=== PATIENT | male | born 1960 | race Caucasian/White ===

== ENCOUNTER 2016-07-09 16:23 | Inpatient (IN) | payer MEDICARE ==
[~2016-07-09] VITALS: Ht 180.3 cm; Wt 88.2 kg
[~2016-07-09 16:23] MED LIST: ASPI-973 PO; ATOR40TA69 PO; DICY10CA13 PO; LISI-571 PO; METO25TA6 PO; ONDA4TAB9 PO; OXYC-466 PO; OXYC1TAB24 PO; POLY17PO6 PO; PRE10 PO
[2016-07-09 16:32] VITALS: BP 137/64; PULSE 102; RESP 17; O2SAT 95
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
[2016-07-09] MEDS ORDERED: Pantoprazole 4 mg/mL 10 mL Inj IVPUSH ONE (16:45)
[2016-07-09] MEDS ORDERED: Ondansetron 2 mg/mL 2 mL Inj IVPUSH ONE ×3 (16:45→18:50)
[2016-07-09 17:29] LABS: BASOPHILS % (AUTO) 0.2 % (0-3); EOSINOPHILS % (AUTO) 1.8 % (0-5); MONOCYTES % (AUTO) 7.9 % (4-12); Mean Corpuscular Volume 84.9 fL (81-100); NEUTROPHILS % (AUTO) 74.6 % (40-74); Platelet Count 183 bil/L (150-400)
[2016-07-09 17:53] LABS: TROPONIN T < 0.010 ug/L (0.0-0.011)
[2016-07-09 17:56] LABS: Lipase 23 U/L (13-60); Magnesium 1.7 mg/dL (1.6-2.6)
--- NOTE | 2016-07-09 18:05 | DRSVH ---
PROCEDURE: X-RAY ACUTE ABDOMINAL SERIES ([id number]) INDICATIONS: epigastric pain TECHNIQUE: One view chest and two views of the abdomen were acquired. COMPARISON: [facility], CR, XR CHEST 1VW (PORTABLE), 03/18/2016, 23:22. FINDINGS: Surgical changes and devices: Surgical clips at the gastroesophageal junction. Cholecystectomy clip s. Chest: Lungs are clear. Heart size is normal. No pleural effusions. No pneumoperitoneum. Abdomen: Mildly dilated loops of small bowel noted left upper quadrant measure up to 3.[address] Scattered air-fluid levels are noted. Several air-fluid levels differential height. No suspic ious calcifications. Visualized solid organ contours appear normal. Bones: No suspicious bony lesions. IMPRESSION: Mildly distended loops of small bowel with air-fluid levels suspicious for early or part ial small bowel obstruction. Dictated by: Jessica Melvin MD, PhD on 07/09/2016 at 18:03 Approved by: Jessica Melvin MD, PhD on 07/09/2016 at 18:03
[2016-07-09] MEDS ORDERED: HYDROmorphone 1 mg/mL Inj IVPUSH PRN (18:50)
[2016-07-09] MEDS ORDERED: HYDROmorphone 1 mg/mL Inj IVPUSH ONE (18:50)
[2016-07-09 19:19] VITALS: BP 139/65; PULSE 97; RESP 18; O2SAT 100
[2016-07-09] MEDS ORDERED: METO25TA99 PO (20:26)
[2016-07-09] MEDS ORDERED: ATOR80TA77 PO (20:26)
--- NOTE | 2016-07-09 20:30 | NUR ---
Admit Report received from Lyndon Jung RN arrived floor via tech ambulated to bed ind. admit dx SBO confirmed by xray medicated for nausea set up dilaudid MEDICAL TECH for pain admission complete did clarify med rec and allergies over the phone w/ Beatriz put her number on white board as he can be forgetful per her and can call her any time
[2016-07-09 20:37] VITALS: BP 127/77; PULSE 106; RESP 20; O2SAT 97
[2016-07-09] MEDS: 0.9% Sodium Chloride 1,000 ML IV SCH ×2 (21:06→22:26)
[2016-07-09] MEDS: Ondansetron 2 mg/mL 2 mL Inj IVPUSH PRN (21:07)
[2016-07-09] MEDS: HYDROmorphone PCA 0.2 mg/mL 30 mL Inj IV PRN (21:25)
[2016-07-09 21:28] VITALS: RESP 22; O2SAT 97
[2016-07-09] MEDS ORDERED: HYDR25CA PO (21:48)
[2016-07-09] MEDS ORDERED: PROM25TA14 PO (21:48)
[2016-07-09] MEDS ORDERED: Polyethylene Glycol (PEG) 17 Gm Powder PO PRN (22:30)
[2016-07-09] MEDS ORDERED: Alum-Mag Hydrox-Simeth 30 mL Suspension PO PRN (22:30)
[2016-07-09 23:30] VITALS: RESP 16; O2SAT 98
[2016-07-10] VITALS (10 sets, daily range): BP systolic 112–141; BP diastolic 60–72; PULSE 89–90; RESP 16–20; O2SAT 93–98
[2016-07-10] MEDS ORDERED: oxyCODONE-Acetamin 10-325 mg Tablet PO PRN (03:30)
[2016-07-10] MEDS ORDERED: predniSONE 20 mg Tablet PO PRN (03:30)
[2016-07-10] MEDS ORDERED: hydrOXYzine Pamoate 25 mg Capsule PO PRN (03:30)
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
[2016-07-10] MEDS: Ondansetron 2 mg/mL 2 mL Inj IVPUSH PRN ×3 (04:40→20:46)
[2016-07-10] MEDS: 0.9% Sodium Chloride 1,000 ML IV SCH ×5 (04:49→15:11)
[2016-07-10 07:05] LABS: Magnesium 1.6 mg/dL (1.6-2.6)
[2016-07-10 07:15] LABS: BASOPHILS % (AUTO) 0.3 % (0-3); EOSINOPHILS % (AUTO) 1.2 % (0-5); MONOCYTES % (AUTO) 13.9 % (4-12); Mean Corpuscular Hemoglobin 30.6 pg (27.0-35.0); Mean Corpuscular Volume 85.5 fL (81-100); NEUTROPHILS % (AUTO) 67.4 % (40-74); Platelet Count 167 bil/L (150-400)
[2016-07-10] MEDS: Sucralfate 100 mg/mL 10 mL Suspension PO SCH ×3 (07:30→18:03)
[2016-07-10] MEDS ORDERED: Influenza (Adult) Vaccine 0.5 mL Syringe IM ONE (08:30)
[2016-07-10] MEDS ORDERED: Indomethacin 25 mg Capsule PO PRN (08:30)
--- NOTE | 2016-07-10 08:48 | NUR ---
Social Work: Initial Assessment Data: Pt is a 55 y/o male admitted for SBO. Pt's PCP is not listed, pt's insurance is Medicare. EMR reviewed. DICE MANAGER met with pt at bedside, role explained. Pt states he lives in a two story home with his spouse where her uses no DME. Pt states that he does not have a DPOA and is not interested in information at this time. Pt states that he has no history wit HH or SNF, no LTC or VA benefits, and is not a caregiver for another. Pt states he was told he is having surgery today. DICE MANAGER will follow up for needs post surgery. Assessment: Pt who is independent at baseline. Plan: DICE MANAGER will follow up for needs post surgery. WYATT Ruiz Addendum: 07/10/16 at 0850 by CLINT HUDSON Amended: Links added.
[2016-07-10] MEDS: HYDROmorphone PCA 0.2 mg/mL 30 mL Inj IV PRN (13:35)
--- NOTE | 2016-07-10 14:37 | PCM.PNMED ---
Subjective Date of Service Jul 10, 2016 Subjective Patient continues to have a fair amount abdominal pain. He has some cramping and no flatus. His abdomen is not bloated. He denies any dyspnea or chest pain. No fevers or chills. His initial imaging was only a flat plate and upright x-ray rate. It has a history of diverticulosis and a partial colectomy as well as a history of a laparotomy for lesion lysis. He does have a history of chronic abdominal pain as well. Exam Vital Signs Vital Sign - Last Date Time Temp Pulse Resp B/P Pulse Ox O2 Delivery O2 Flow Rate FiO2 07/10/16 13:35 18 94 07/10/16 07:42 37.4 90 141/72 Room Air Intake and Output 07/09/16 07/09/16 07/10/16 Cumulative From/Thru 15:00 23:00 07:00 07/09/16 16:32 - 07/10/16 06:24 Intake Total 1073 ml 1073 ml Output Total 175 ml 500 ml 675 ml Balance -175 ml 573 ml 398 ml Intake Oral 0 ml 0 ml IV Total 1073 ml 1073 ml Output Urine Total 175 ml 500 ml 675 ml # Voids 1 1 # Bowel Movements 0 0 Exam Alert oriented 3, no distress. Fluent speech Normal skull Anicteric sclera Neck supple. Lungs are clear, normal effort. Heart is regular Abdomen is soft there is tenderness diffusely, hypoactive bowel tones. Not hypertympanic Extremities are free of edema good pedal pulses. Skin without rash or lesions IVs and Medications Medications Reviewed: Medications were reviewed in detail Lab and Diagnostics Result Diagram: 07/10/16 0600 07/10/16 0600 X-Rays, CTs and MRIs X-Ray Abdominal Interpretation IMPRESSION: Mildly distended loops of small bowel with air-fluid levels suspicious for early or partial small bowel obstruction. 12-lead ECG ECG Interpretation: LAD, consider LAFB Similar to 03/18/16 Normal ECG Interpretation: No acute ischemic changes Abnormal Rate: 100 Assessment & Plan Patient is a 55 year old male with a pmh cad, GERD, gout, diverticulosis (s/p partial colectomy), and chronic pain that is presenting with abdominal pain. Patient has evidence of small bowel obstruction on xray. Patient is currently stable and his pain is well controlled on pain medication. 1. Small bowel obstruction, recurrent. - Patient has a history of abdominal surgeries - Patient has been having a hard time stooling since his partial colectomy - Most recently patient had a sudden onset of abdominal pain, with associated nausea - Evidence of small bowel obstruction on xray - Will manage with npo and iv fluids for the time being -We will pursue a CT scan of the abdomen contrast to further delineate this problem. We will then follow with a surgical consultation. 2. Foot pain - Patient has a 2 day history of foot pain - As per patient he has frequent gout attacks and is on ppx prednisone for it - No abnormalities seen on exam - will start treatment for gout with indomethacin for pain and prednisone 10 mg - if worsening will get imaging of foot 3. CAD - established - will c.w aspirin 4. Hypertension - established - will continue with metoprolol and lisinopril 5. Hyperlipidemia - c/w atorvastatin Pain Evaluation: Adequate Pain Control VTE Mechanical Devices: Intermittant Pneumatic CD Resuscitation Status: CPR: Attempt Resuscitation Time spent 30 minutes David Delarosa MD Jul 10, 2016 14:37
--- NOTE | 2016-07-10 16:32 | DRSVH ---
PROCEDURE: CT ABDOMEN AND PELVIS WITH CONTRAST ([id number]) INDICATIONS: abdomen pain TECHNIQUE: After the administration of oral and intravenous contrast, 5 mm thick sections acquired from the diap hragms to the symphysis. 5 mm thick coronal and sagittal reformats were performed. For radiation do se reduction, the following was used: automated exposure control, adjustment of mA and/or kV accordi ng to patient size. COMPARISON: [facility], CT, CT ABD PELVIS WO CON, 01/22/2016, 0:51. FINDINGS: Image quality: Excellent. ABDOMEN: Lung bases: Lung bases are clear. Heart size is normal. Solid organs: Liver and spleen are normal in size and enhancement. Focal fatty infiltration of the l iver adjacent to the falciform ligament. Gallbladder is surgically absent. Biliary system is non-dil ated. Pancreas enhances normally. No adrenal nodules. Kidneys are normal in size and enhancement, without hydronephrosis. Peritoneum and bowel: Postsurgical changes compatible prior Manpreet fundoplication again noted. Stoma ch, small bowel, and colon loops are normal in caliber and wall thickness. Anastomotic sutures in the sigmoid colon are stable compared to prior examinations. No free fluid or air. Nodes and vessels: No retroperitoneal or mesenteric adenopathy. Aorta and inferior vena cava are no rmal in caliber. Miscellaneous: No ventral hernias. Diastases of the rectus abdominis sheath which contains unremarka ble appearing loops of bowel again noted. PELVIS: Genitourinary: Bladder wall thickness is normal. Defect in the prostate compatible prior TURP is not ed. Miscellaneous: No inguinal hernias or adenopathy. Bones: No suspicious bony lesions. No vertebral body compression fractures. IMPRESSION: 1. No acute disease process. 2. Status post cholecystectomy, Manpreet fundoplication and TURP. 3. No free fluid or air. 4. No dilated loops of bowel. 5. No inflammatory changes. Dictated by: Jessica Melvni MD, PhD on 07/10/2016 at 16:30 Approved by: Jessica Melvin MD, PhD on 07/10/2016 at 16:30
--- NOTE | 2016-07-10 16:35 | NUR ---
Pain Pt complains of "6-8/10" abdominal pain for much of the day. Pt continuing on Dilaudid CANVASS MANAGER. He reports that it works "ok" when he remembers to press the button, encouraged patient to do so. He remains NPO at this time. Reports intermittent nausea, given IV zofran x1 today. Continue to monitor.
[2016-07-10] MEDS: MeTOProlol XL 25 mg ER24 Tablet PO SCH (20:46)
[2016-07-11] VITALS (12 sets, daily range): BP systolic 107–130; BP diastolic 56–70; PULSE 74–90; RESP 16–22; O2SAT 90–94
[2016-07-11] MEDS: 0.9% Sodium Chloride 1,000 ML IV SCH ×3 (00:57→20:42)
--- NOTE | 2016-07-11 04:38 | NUR ---
Pain/nausea/temp Pain appears much better controlled though w/use of LIVING NURSE medicated for nausea x1, and remains w/low grade fever
[2016-07-11] MEDS: Ondansetron 2 mg/mL 2 mL Inj IVPUSH PRN ×3 (07:05→20:32)
[2016-07-11] MEDS: Sucralfate 100 mg/mL 10 mL Suspension PO SCH ×3 (09:26→17:22)
[2016-07-11] MEDS ORDERED: MetoCLOpramide 5 mg/mL 2 mL Inj IVPUSH PRN (10:15)
[2016-07-11] MEDS: Acetaminophen IV 1,000 MG in IV Premix 1 EACH IV PRN ×2 (11:30→20:32)
--- NOTE | 2016-07-11 11:40 | DRSVH ---
PROCEDURE: X-RAY CHEST, TWO VIEWS ([id number]) INDICATIONS: fever TECHNIQUE: 2 views of the chest were acquired. COMPARISON: [facility], CR, XR CHEST 1VW (PORTABLE), 03/18/2016, 23:22. FINDINGS: Surgical changes and devices: None. Lungs and pleura: No pleural effusions or pneumothorax. Lungs are clear. Mediastinum: Mediastinal contours are normal. Heart size is normal. Bones and chest wall: No suspicious bony abnormalities. Soft tissues appear unremarkable. IMPRESSION: No acute disease Dictated by: Joseph Forman M.D. on 07/11/2016 at 11:38 Approved by: Joseph Forman M.D. on 07/11/2016 at 11:38
--- NOTE | 2016-07-11 13:16 | PCM.PNMED ---
Subjective Date of Service Jul 11, 2016 Subjective Less abdominal pain. Some transient. Some nausea. No diarrhea. No blood per rectum. He denies a cough, rhinorrhea or dyspnea. He did have 2 fevers or last 24 hours. No hematuria or dysuria. CT scan of the abdomen is negative for acute process, bowel obstruction or diverticulitis Exam Vital Signs Vital Sign - Last Date Time Temp Pulse Resp B/P Pulse Ox O2 Delivery O2 Flow Rate FiO2 07/11/16 12:46 20 93 07/11/16 09:02 36.4 77 129/70 Room Air Intake and Output 07/10/16 07/10/16 07/11/16 Cumulative From/Thru 15:00 23:00 07:00 07/09/16 16:32 - 07/11/16 06:14 Intake Total 1471 ml 1262 ml 3806 ml Output Total 550 ml 1125 ml 2350 ml Balance 921 ml 137 ml 1456 ml Intake Oral 360 ml 0 ml 360 ml IV Total 1111 ml 1262 ml 3446 ml Output Urine Total 550 ml 1125 ml 2350 ml # Voids 1 # Bowel Movements 0 0 0 Exam Alert oriented 3, fluent speech. No distress. Anicteric sclera. Neck supple. Lungs are clear, normal effort Heart is regular without murmur. Abdomen is soft somewhat distended. Nontender no guarding or rebound or organomegaly. Extremities are free of edema. Good pedal pulses. No skin rash or lesions IVs and Medications Medications Reviewed: Medications were reviewed in detail Lab and Diagnostics Result Diagram: 07/10/16 0600 07/10/16 0600 X-Rays, CTs and MRIs CT scan of the abdomen with IV and by mouth contrast is unremarkable. No STO or diverticulitis Assessment & Plan Patient is a 55 year old male with a h cad, GERD, gout, diverticulosis (s/p partial colectomy), and chronic pain that is presenting with abdominal pain. Patient has evidence of small bowel obstruction on xray. Patient is currently stable and his pain is well controlled on pain medication. 1. Abdominal pain, POA. Improving. The patient has a negative CT scan. He has a history of bowel obstruction as well as diverticulitis without evidence of either. We will treat symptomatically with fluids antibiotics and analgesia. We will follow clinically. 2. Foot pain, POA. History of gout. -This is improving. He was placed on indomethacin for possible gout will let just continue with this for now. 3. CAD, POA. Not clinically active. We will follow clinically at this time. No change to baseline medications. - 4. Hypertension, essential. Chronic. POA. - established - will continue with metoprolol and lisinopril 5. Hyperlipidemia - c/w atorvastatin 6. Fever, following admission. No clinical symptoms. The patient had blood cultures 2 and chest x-ray today. He had a negative UA. Abdomen CT is unremarkable. Nasal PCR for flu negative. We will follow with a respiratory panel PCR. VTE Mechanical Devices: Intermittant Pneumatic CD Resuscitation Status: CPR: Attempt Resuscitation Time spent 20 minutes. Possible discharge 1-2 days depending on resolution of pain and fever. David Delarosa MD Jul 11, 2016 13:16
[2016-07-11] MEDS: HYDROmorphone PCA 0.2 mg/mL 30 mL Inj IV PRN (13:22)
--- NOTE | 2016-07-11 14:41 | NUR ---
Temp/LEW/Abd pain Pt running low grade temp, complaining of LEW, notified received order for IV Tylenol. PT stated LEW gone after Tylenol, stated abdominal pain improved with Tylenol and DATABASE MANAGER Dilaudid. Addendum: 07/11/16 at 1547 by PEYTON US RN Advanced diet to Full liquids, pt had a cup of broth, state nausea back and increased pain.
[2016-07-11] MEDS: MeTOProlol XL 25 mg ER24 Tablet PO SCH (20:31)
--- NOTE | 2016-07-11 20:50 | NUR ---
O2 st/Temp On initial assess patient found with saturation 87-90% placed on 3L NC and CPOX per protocol Also febrile @ 38.6 gave IV tylenol texted update on condition
[2016-07-12] VITALS (7 sets, daily range): BP systolic 97–118; BP diastolic 58–68; PULSE 69–73; RESP 16–18; O2SAT 93–100
--- NOTE | 2016-07-12 06:15 | NUR ---
BM Patient states had a bit of diarrhea followed by " 1inch formed stool"
[2016-07-12] MEDS: 0.9% Sodium Chloride 1,000 ML IV SCH (06:23)
[2016-07-12] MEDS: Sucralfate 100 mg/mL 10 mL Suspension PO SCH (07:33)
[2016-07-12] MEDS: HYDROmorphone PCA 0.2 mg/mL 30 mL Inj IV PRN (07:33)
[2016-07-12 09:10] LABS: APPEARANCE,URINE CLEAR (CLEAR,HAZY); COLOR,URINE YELLOW (YELLOW); OCCULT BLOOD,URINE TRACE (NEGATIVE); PH,URINE 5.5 (5.0-8.0); UROBILINOGEN,URINE NORMAL (NORMAL)
[2016-07-12 09:41] LABS: BASOPHILS % (AUTO) 0.1 % (0-3); EOSINOPHILS % (AUTO) 0.3 % (0-5); MONOCYTES % (AUTO) 8.3 % (4-12); Mean Corpuscular Hemoglobin 29.5 pg (27.0-35.0); Mean Corpuscular Volume 85.6 fL (81-100); NEUTROPHILS % (AUTO) 75.1 % (40-74); Platelet Count 131 bil/L (150-400)
[2016-07-12 10:01] LABS: Magnesium 1.9 mg/dL (1.6-2.6)
--- NOTE | 2016-07-12 11:42 | NUR ---
AMA Pt left AMA at 1120, consent formed signed. Pt understands that he is at risk for worsening infection with fever observed overnight and refused nasal swab MD requested. He states "I should have already had surgery. The ER doctor told me I had a blockage and has done nothing about it." Per pt he has relationship with Dr. Medrano and pain clinic and is not worried about leaving. PIV DC'd intact prior to DC and pt collected all of his belongings.
--- NOTE | 2016-07-12 18:57 | PCM.DC.MED ---
Discharge Summary Date of Service Jul 12, 2016 Dates of Hospitalization Date of Hospital Admission Jul 09, 2016 at 19:45 Date of Discharge: Jul 12, 2016 Providers: Admitting Physician: Edenilsno Edmondson MD Primary Care Physician: Yessy Attending Physician: Edenilson Edmondson MD Diagnosis at Time of Discharge Diagnosis at Time of Discharge # Patient left AMA # Abdominal pain, POA. Improving. unclear etiology # Fever, following admission of unclear source. # Foot pain, POA. History of gout. # CAD, POA. presumed stable. # Hypertension, essential. Chronic. stable # Hyperlipidemia. chronic. Procedures XRay, CTs & MRIs CT scan of the abdomen with IV and by mouth contrast is unremarkable. No STO or diverticulitis Brief History As noted in H&P by Dr. Edmondson: Patient is a 55 year old male with a pmh cad, GERD, gout, diverticulosis (s/p partial colectomy), and chronic pain that is presenting with abdominal pain. Patient was in his usual state of health for the past few weeks when he started to notice cramps in his stomach and difficulty stooling. Patient did not think much of it since this has been a chronic issue for him and he tried to control the pain as much as possible. Patient today had a sudden on set of severe abdominal pain, it occured in the lower part of his abdomen and he said it felt like a bomb going off in his abdomen and that the pain felt sharp and spread throughout his abdomen. This was followed by severe nausea and occasional bouts of vomiting. Patient could not manage this degree of pain while at home, so EMS was called and patient was brought into the hospital. Patient additionally is complaining of a sharp pain on the dorsum of his foot. The pain claims that the pain is sharp and it feels like someone stepped on his foot. Patient has no evidence of skin changes over the area in question. Patient is otherwise stable and doing well. Hospital Course # Patient left AMA # Abdominal pain, POA. Improving. unclear etiology # Fever, following admission of unclear source. # Foot pain, POA. History of gout. # CAD, POA. presumed stable. # Hypertension, essential. Chronic. stable # Hyperlipidemia. chronic. I saw and examined patient on day of d/c. Plan was for further workup of his noted fever and for consideration of further GI consult in am. His exam was notable for lungs CTA bilat. Abdomen soft, nd, +bs. However, after my examination and discussion of the plan of care I was notified that patient acutely decided to leave the hospital AMA. Exam Vital Signs (Last) Date Time Temp Pulse Resp B/P Pulse Ox O2 Delivery O2 Flow Rate FiO2 07/12/16 09:11 16 95 07/12/16 08:04 37.1 73 118/68 Room Air 07/12/16 04:51 2.00 Test 07/09/16 17:15 07/09/16 18:50 07/10/16 06:00 07/12/16 08:45 Troponin T < 0.010ug/L (0.0-0.011) Lipase 23U/L (13-60) Hold Daniels Top Tube Received (Received) Hold Urine Received (Received) Total Bilirubin 1.2mg/dL (0.0-1.2) Aspartate Amino Transf (AST/SGOT) 17U/L (0-50) Alanine Aminotransferase (ALT/SGPT) 19U/L (0-44) Alkaline Phosphatase 56U/L (25-150) Total Protein 5.8g/dL (6.4-8.4) Albumin 3.9g/dL (3.4-5.0) Urine Color Yellow (YELLOW) Urine Appearance Clear (CLEAR,HAZY) Urine pH 5.5 (5.0-8.0) Urine Specific [place] 1.025 (1.003-1.035) Urine Protein Negativemg/dL (NEG,TRACE) Urine Glucose (UA) Negativemg/dL (NEGATIVE) Urine Ketones 15mg/dL (NEGATIVE) Urine Occult Blood Trace (NEGATIVE) Urine Nitrite Negative (NEGATIVE) Urine Bilirubin Negative (NEGATIVE) Urine Urobilinogen Normalmg/dL (NORMAL) Urine Leukocyte Esterase Negative (NEGATIVE) Urine RBC 0-2/hpf (0-2) Urine WBC 0-5/hpf (0-5) Urine Epithelial Cells Few/hpf (NONE-MOD) Urine Crystals None seen (NONE SEEN) Urine Bacteria None/hpf (NONE-FEW) Urine Hyaline Casts None/lpf (NONE) Urine Granular Casts None seen (NONE SEEN) Urine Waxy Casts None seen (NONE SEEN) Urine Red Blood Cell Casts None seen (NONE SEEN) Urine White Blood Cell Casts None seen (NONE SEEN) Urine Mucus Present (None Seen) Urine Trichomonas None seen (NONE SEEN) Urine Yeast None (NONE SEEN) Urinalysis Comment None Urine Culture Reflexed Not indicated Test 07/12/16 09:05 White Blood Count 9.0th/mm3 (3.8-10.1) Red Blood Count 4.03mil/mm3 (4.40-5.80) Hemoglobin 11.9g/dL (13.8-17.2) Hematocrit 34.5% (41.0-50.0) Mean Corpuscular Volume 85.6fL (81-100) Mean Corpuscular Hemoglobin 29.5pg (27.0-35.0) Mean Corpuscular Hemoglobin Concent 34.5% (32.0-37.0) Red Cell Distribution Width 11.7% (12.3-15.4) Platelet Count 131bil/L (150-400) Neutrophils (%) (Auto) 75.1% (40-74) Lymphocytes (%) (Auto) 16.0% (14-46) Monocytes (%) (Auto) 8.3% (4-12) Eosinophils (%) (Auto) 0.3% (0-5) Basophils (%) (Auto) 0.1% (0-3) Sodium Level 135mEq/L (134-144) Potassium Level 4.1mEq/L (3.5-5.2) Chloride Level 98mEq/L (97-108) Carbon Dioxide Level 27mmol/L (18-29) Blood Urea Nitrogen 15mg/dL (6-24) Creatinine 0.73mg/dL (0.76-1.27) Estimat Glomerular Filtration Rate 119mL/min (>59) Glucose Level 148mg/dL (60-99) Calcium Level 8.0mg/dL (8.5-10.1) Magnesium Level 1.9mg/dL (1.6-2.6) Procalcitonin < 0.05ng/mL (See Comment) Discharge Medications Discharge Medications Aspirin (Aspirin) 81 Mg Tablet 81 MG PO DAILY Prescribed by: RADHA CHANG DO Atorvastatin Calcium (Atorvastatin Calcium) 80 Mg Tablet 80 MG PO HS (Reported) Lisinopril (Lisinopril) 5 Mg Tablet 5 MG PO DAILY Prescribed by: RADHA CHANG DO Metoprolol Succinate ER (Metoprolol Succinate ER) 25 Mg Tab.er.24h 12.5 MG PO HS (Reported) As needed Hydroxyzine Pamoate (Vistaril) 25 Mg Capsule 25 MG PO TID PRN PRN For Itching ( Reported) Ondansetron ODT (Zofran ODT) 4 Mg Tablet 4 MG PO Q4H PRN PRN For Nausea Prescribed by: SUNNY WHALEN MD Polyethylene Glycol 3350 (Miralax) 17 Gm Powd.pack 17 GM PO prn PRN PRN For Constipation (Reported) Prednisone (PredniSONE) 10 Mg Tablet 40 MG PO DAILY PRN PRN gout (Reported) Promethazine (Promethazine) 25 Mg Tablet 25 MG PO Q6H PRN PRN For Nausea ( Reported) oxyCODONE-Acetaminophen 10-325 mg (oxyCODONE-Acetaminophen 10-325 mg) 1 Each Tablet 1 TABLET PO Q4H PRN PRN For Pain Prescribed by: VEENA SILVA DO Followup Plan Disposition: left AMA Time spent 30 min Dominic Carter Jul 12, 2016 18:57
== END 2016-07-12 11:20 | disposition left against medical advice (07) | DRG 392 ==
LOC: SED 16:23 → INTOOBSV 19:45 → OBSVTOIN 19:45 → MOC 19:45
PROVIDERS: ADMIT Internal Medicine; ATTEND Internal Medicine
DX: R10.30 Lower abdominal pain, unspecified (principal); R50.9 Fever, unspecified; M10.9 Gout, unspecified; I25.10 Atherosclerotic heart disease of native coronary artery without angina pectoris; F10.21 Alcohol dependence, in remission; K21.9 Gastro-esophageal reflux disease without esophagitis; E78.5 Hyperlipidemia, unspecified; I25.2 Old myocardial infarction; Z90.49 Acquired absence of other specified parts of digestive tract; Z79.82 Long term (current) use of aspirin; Z23 Encounter for immunization

== ENCOUNTER 2016-09-06 10:30 | Inpatient (IN) | payer MEDICARE ==
[2016-09-06] VITALS (9 sets, daily range): BP systolic 116–150; BP diastolic 64–81; PULSE 89–105; RESP 16–20; O2SAT 96–100
[~2016-09-06] VITALS: Ht 180.3 cm; Wt 82.5 kg
[~2016-09-06 10:30] MED LIST changes: -ATOR40TA69 PO; +ATOR80TA77 PO; -DICY10CA13 PO; +HYDR25CA PO; -METO25TA6 PO; +METO25TA99 PO; -OXYC1TAB24 PO; +PROM25TA14 PO
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
[2016-09-06] MEDS ORDERED: 0.9% Sodium Chloride 1,000 ML IV ONE ×2 (10:41→13:00)
[2016-09-06] MEDS ORDERED: HYDROmorphone 1 mg/mL Inj IVPUSH PRN (10:45)
[2016-09-06] MEDS ORDERED: Ondansetron 2 mg/mL 2 mL Inj IVPUSH PRN ×3 (10:45→14:20)
[2016-09-06] MEDS ORDERED: Pantoprazole 4 mg/mL 10 mL Inj IVPUSH ONE (10:45)
[2016-09-06] MEDS ORDERED: Ketorolac 15 mg/mL Inj IVPUSH ONE (10:45)
[2016-09-06 10:57] LABS: Mean Corpuscular Hemoglobin 29.8 pg (27.0-35.0); Mean Corpuscular Volume 86.4 fL (81-100); Platelet Count 321 bil/L (150-400)
[2016-09-06] MEDS ORDERED: FENT1PAT7 TRANSDERM (11:14)
[2016-09-06 11:36] LABS: Magnesium 2.1 mg/dL (1.6-2.6)
--- NOTE | 2016-09-06 11:36 | DRSVH ---
PROCEDURE: X-RAY ACUTE ABDOMINAL SERIES ([id number]) INDICATIONS: 55 year-old male with abdominal pain. TECHNIQUE: One view chest and two views of the abdomen were acquired. COMPARISON: [facility], CR, XR ABD ACUTE SERIES 3VW, 07/09/2016, 17:26. [facility], CR, XR ABD ACUTE SERIES 3VW, 04/03/2015, 0:29. [facility], CR, ABD ACUTE SERIES, 01/23/2012, 19:37. FINDINGS: Surgical changes and devices: Patient is status post cholecystectomy. Chest: Lungs are clear. Heart size is normal. No pleural effusions. No pneumoperitoneum. Abdomen: Bowel gas pattern is normal, with dependent fluid throughout the transverse colon, with mul tiple small air-fluid levels. No suspicious calcifications. Visualized solid organ contours appear normal. Bones: No suspicious bony lesions. IMPRESSION: No bowel obstruction or perforation. Dependent fluid throughout the transverse colon woul d suggest diarrhea. Dictated by: Clifton White M.D. on 09/06/2016 at 11:33 Approved by: Clifton White M.D. on 09/06/2016 at 11:35
[2016-09-06 11:45] LABS: BASOPHILS % (AUTO) 0 % (0-3); EOSINOPHILS % (AUTO) 1 % (0-5); MONOCYTES % (AUTO) 5 % (4-12); NEUTROPHILS % (AUTO) 77 % (40-74)
--- NOTE | 2016-09-06 12:38 | DRSVH ---
PROCEDURE: CT ABDOMEN AND PELVIS WITH CONTRAST ([id number]) INDICATIONS: 55-year-old man with left lower quadrant abdominal pain and leukocytosis. TECHNIQUE: After the administration of intravenous contrast, 5 mm thick sections acquired from the diaphragm to the symphysis. 5 mm coronal and sagittal reformats were acquired. For radiation dose reduction, the following was used: automated exposure control, adjustment of mA and/or kV according to patient siz e. COMPARISON: [facility], CT, CT ABD PELVIS W CON, 07[facility]10[facility]2016[facility], 01/22/2016, 0:51. [facility], CT, CT ABD PELVIS W CON, 03/12, 14:43. [facility], CT, CT ABD PELVIS W CON, 03/04/2015, 10:39. [facility], CT, CT ABD PELVIS W CON, 02/25/2015, 23:57. FINDINGS: Image quality: Excellent. ABDOMEN: Lung bases: Lung bases are clear. Heart size is normal. Patient is status post fundoplication proc edure. Solid organs: Liver and spleen are normal in size. On axial image 18, 8 mm anterior right hepatic l obe hypodense lesion is unchanged since February 2015. There is focal fatty infiltration adjacent to th e falciform ligament as before. Gallbladder is surgically absent. Biliary system is non dilated. P ancreas enhances normally. No adrenal nodules. Kidneys demonstrate normal size and enhancement, wit hout hydronephrosis. Peritoneum and bowel: Bowel loops demonstrate normal wall thickness and caliber. Patient is status post segmental sigmoid resection with anastomosis, as well as appendectomy. No colonic diverticula. No free fluid or air. Nodes and vessels: No retroperitoneal or mesenteric adenopathy by size criteria. Aorta and inferior vena cava are normal in size, with mild aortic atherosclerosis. Miscellaneous: There is broad-based periumbilical ventral hernia as before. PELVIS: Genitourinary: Bladder wall thickness is normal. Prostate gland is normal in size, status post gigi te transurethral resection of the prostate. Miscellaneous: No inguinal hernias or adenopathy. Bones: No suspicious bony lesions. No vertebral body compression fractures. IMPRESSION: 1. No acute findings to explain left lower quadrant abdominal pain and leukocytosis, status post rem ote segmental sigmoid colon resection. 2. 8 mm anterior right hepatic lobe hypodense lesion is unchanged since February 2015, reassuring for benign etiology. 3. Broad-based periumbilical ventral hernia as before. Dictated by: Clifton White M.D. on 09/06/2016 at 12:29 Approved by: Clifton White M.D. on 09/06/2016 at 12:37
[2016-09-06] MEDS ORDERED: 0.9% Sodium Chloride 1,000 ML IV SCH (14:20)
[2016-09-06] MEDS ORDERED: Alum-Mag Hydrox-Simeth 30 mL Suspension PO PRN (14:20)
[2016-09-06 14:40] LABS: APPEARANCE,URINE HAZY (CLEAR,HAZY); COLOR,URINE YELLOW (YELLOW); OCCULT BLOOD,URINE NEGATIVE (NEGATIVE); UROBILINOGEN,URINE NORMAL (NORMAL)
[2016-09-06] MEDS ORDERED: HYDROmorphone 1 mg/mL Inj IVPUSH ONE (14:55)
[2016-09-06] MEDS ORDERED: Ondansetron 2 mg/mL 2 mL Inj IVPUSH ONE (14:55)
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
--- NOTE | 2016-09-06 16:00 | NUR ---
Arrival Pt arrived to floor with family to room 1012 Pt has nausea, vomiting and diarrhea, His daughter had recently been ill with, N/V/D Pt is alert and orient, independent to bathroom.
[2016-09-06] MEDS ORDERED: Pantoprazole 4 mg/mL 10 mL Inj IVPUSH SCH (16:30)
[2016-09-06 16:37] LABS: BASOPHILS % (AUTO) 0.1 % (0-3); EOSINOPHILS % (AUTO) 0.3 % (0-5); MONOCYTES % (AUTO) 3.3 % (4-12); Mean Corpuscular Hemoglobin 30.5 pg (27.0-35.0); Mean Corpuscular Volume 87.6 fL (81-100); Platelet Count 148 bil/L (150-400)
[2016-09-06] MEDS: MetoCLOpramide 5 mg/mL 2 mL Inj IVPUSH SCH ×2 (17:10→22:22)
[2016-09-06] MEDS: 0.9% Sodium Chloride 1,000 ML IV SCH (17:20)
[2016-09-06] MEDS: MeTOProlol XL 25 mg ER24 Tablet PO SCH (21:53)
[2016-09-06] MEDS: Pantoprazole 40 mg ER24 Tablet PO SCH (21:53)
[2016-09-06] MEDS: HYDROmorphone 1 mg/mL Inj IVPUSH PRN (22:55)
[2016-09-07] VITALS (7 sets, daily range): BP systolic 102–130; BP diastolic 62–76; PULSE 76–92; RESP 16–20; O2SAT 93–96
[2016-09-07] MEDS: 0.9% Sodium Chloride 1,000 ML IV SCH ×2 (04:28→14:38)
[2016-09-07] MEDS: MetoCLOpramide 5 mg/mL 2 mL Inj IVPUSH SCH ×4 (04:33→21:46)
[2016-09-07] MEDS: HYDROmorphone 1 mg/mL Inj IVPUSH PRN ×4 (04:43→20:25)
[2016-09-07 06:36] LABS: BASOPHILS % (AUTO) 0.1 % (0-3); EOSINOPHILS % (AUTO) 0.3 % (0-5); MONOCYTES % (AUTO) 7.2 % (4-12); Mean Corpuscular Hemoglobin 30.2 pg (27.0-35.0); Mean Corpuscular Volume 88.4 fL (81-100); NEUTROPHILS % (AUTO) 81.8 % (40-74); Platelet Count 157 bil/L (150-400)
[2016-09-07 06:46] LABS: Magnesium 1.6 mg/dL (1.6-2.6); Phosphorus 3.1 mg/dL (2.5-4.9)
[2016-09-07] MEDS: Pantoprazole 40 mg ER24 Tablet PO SCH ×2 (09:24→21:47)
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
--- NOTE | 2016-09-07 15:01 | NUR ---
Case Management - ISBELL explained and signed by patient. Jesenia PEREZ/RN
--- NOTE | 2016-09-07 19:26 | NUR ---
Pain/nausea Pt stating pain 6-7/10 most the shift. IV dilaudid administered PRN. pain down to 5/10. Pt complained of LEW today, administered Tylenol PRN darkened room and placed cool wash rag on head, pt stated it helped some. Nausea tolerable today, pt able to tolerate clear liquids without increased nausea and no vomiting.
[2016-09-07] MEDS: MeTOProlol XL 25 mg ER24 Tablet PO SCH (21:47)
[2016-09-08] MEDS: 0.9% Sodium Chloride 1,000 ML IV SCH ×3 (00:53→22:35)
[2016-09-08] MEDS: HYDROmorphone 1 mg/mL Inj IVPUSH PRN ×4 (02:53→22:30)
[2016-09-08] MEDS: MetoCLOpramide 5 mg/mL 2 mL Inj IVPUSH SCH ×4 (03:44→22:15)
--- NOTE | 2016-09-08 04:32 | NUR ---
PAIN Pt had pain 8/10 in his abdomen today. he said multiple times "I wish they would just cut out whatever is causing this pain". he has his home fentanyl patch on still and he has received 2mg of IV dilaudid every 4-6hrs. the dilaudid has been effective in reducing his abdominal pain and he has slept in between doses. pt has also still complained of headache, Tylenol has been helpful in reducing it. pt has had no complaints of nausea, but is still getting scheduled reglan. care continues.
[2016-09-08 04:52] VITALS: BP 113/67; PULSE 77; RESP 16; O2SAT 93
[2016-09-08 07:13] LABS: BASOPHILS % (AUTO) 0.1 % (0-3); EOSINOPHILS % (AUTO) 1.6 % (0-5); MONOCYTES % (AUTO) 11.3 % (4-12); Mean Corpuscular Hemoglobin 29.6 pg (27.0-35.0); Mean Corpuscular Volume 86.9 fL (81-100); NEUTROPHILS % (AUTO) 66.5 % (40-74); Platelet Count 134 bil/L (150-400)
[2016-09-08 07:59] LABS: Magnesium 1.7 mg/dL (1.6-2.6); Phosphorus 3.2 mg/dL (2.5-4.9)
[2016-09-08] MEDS: Pantoprazole 40 mg ER24 Tablet PO SCH ×2 (09:11→20:29)
--- NOTE | 2016-09-08 09:11 | NUR ---
Social Work- Initial Assessment Late Note: Initial Assessment completed 09/07/16. Data: See Initial Assessment. Pt is a 55 year old male admitted 09/06/16 for abdominal pain, leukocytosis per H&P. Pt's insurance is [employer]. Pt has no PCP listed at this time. JUANITO met with pt at bedside regarding discharge plan, SW role explained. Pt alert and oriented x3. Pt resides in a single level home with his where he remains independent with his ADLs. Pt uses no DME and drives. Pt has no VA benefits and no LTC. Pt has no HH or SNF experience. SW spoke with pt regarding DPOA, provided DPOA paperwork. Pt to discharge home with to transport via POV. SW left phone number and plan on whiteboard in room. No anticipated discharge needs. SW will continue to follow. Assessment: Pt who is independent at base. Plan: Pt to discharge home with to transport via POV. No anticipated discharge needs. SW will continue to follow. WYATT Glover Addendum: 09/08/16 at 0914 by DAWN RAIN Amended: Links added.
[2016-09-08 10:04] VITALS: BP 121/74; PULSE 86; RESP 18; O2SAT 95
[2016-09-08 10:31] VITALS: PULSE 71
--- NOTE | 2016-09-08 11:13 | PCM.DIMED ---
Discharge Instructions Date of Service Sep 08, 2016 Dates of Hospitalization Sep 06, 2016 at 14:45 Discharge Diagnosis Discharge Diagnosis probable acute viral gastroenteritis with marked leukocytosis severe dehydration from GI fluid loss Medication Instructions Please continue your medicine for pain, nausea, vomiting take zofran for nausea, vomiting take Promethazine for belly pain, nausea, vomiting. Patient Instructions You were hospitalized with intractable pain in your belly, nausea, vomiting. workups in the hospital including CT, abdominal xray didn't show any signs of reasons explains your symptoms. It's possible you were contracted with viral infection from your daughter. Please note that you have to continue to see Pain doctor to control your chronic pain adequately Follow-up plan Please see new doctor in Residency clinic in 1-2week for follow up Follow-up Provider: [facility] Follow-up with PCP in: 1 week Gentry Lui MD Sep 08, 2016 11:13
--- NOTE | 2016-09-08 11:20 | NUR ---
Social Work- Readiness for Discharge Data: EMR reviewed. Pt is on day 1 of hospitalization for abdominal pain, leukocytosis per H&P. Per RN notes, pt is up independent in room. Pt is independent at base. Pt to discharge home with to transport via POV. No anticipated discharge needs. SW will continue to follow. Assessment: Pt who is independent at base. Plan: Pt to discharge home with to transport via POV. No anticipated discharge needs. SW will continue to follow. WYATT Glover
--- NOTE | 2016-09-08 11:53 | NUR ---
Social Work- Discharge Data: EMR reviewed. Pt is on day 1 of hospitalization for abdominal pain, leukocytosis per H&P. Per RN notes, pt is up independent in room. Pt is independent at base. Pt to discharge home with to transport via POV. No discharge needs. Assessment: Pt who is independent at base. Plan: Pt to discharge home with to transport via POV. No discharge needs. WYATT Glover
[2016-09-08 14:05] VITALS: BP 122/72; PULSE 75; RESP 16; O2SAT 95
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
[2016-09-08 19:22] VITALS: BP 133/72; PULSE 72; RESP 18; O2SAT 96
--- NOTE | 2016-09-08 19:59 | NUR ---
Pain Nausea Diet advanced to soft diet for lunch, patient had a sandwich and stated pain and nausea increased, Pt stated "I should not have eaten" MD notified, discharge held, GI consult placed, pt will be NPO after midnight. Pain well controlled with IV Dilaudid, nausea controlled with scheduled Reglan
[2016-09-08] MEDS: MeTOProlol XL 25 mg ER24 Tablet PO SCH (20:33)
[2016-09-08] MEDS ORDERED: PEG/Electrolytes 4,000 mL Solution PO SCH (21:10)
[2016-09-09] MEDS: MetoCLOpramide 5 mg/mL 2 mL Inj IVPUSH SCH ×4 (03:43→21:35)
--- NOTE | 2016-09-09 03:52 | NUR ---
Bowel Prep/pain Spoke to MD at start of shift and rec'd order for bowel prep and NPO after 0900 on 09/09. Pt had 2000ml of bowel prep at 2100 and will finish 2nd half at 0600 per orders. Pt has tolerated well and has clear liquid BM at this time. Pain continues to be 8/10 or higher. Receiving PRN pain meds.
[2016-09-09 04:13] VITALS: PULSE 76
[2016-09-09 04:25] VITALS: BP 123/60; PULSE 61; RESP 16; O2SAT 96
[2016-09-09] MEDS ORDERED: PEG/Electrolytes 4,000 mL Solution PO SCH (06:00)
[2016-09-09] MEDS: HYDROmorphone 1 mg/mL Inj IVPUSH PRN ×4 (06:14→21:32)
[2016-09-09] MEDS: 0.9% Sodium Chloride 1,000 ML IV SCH ×2 (06:15→21:36)
[2016-09-09 06:21] LABS: BASOPHILS % (AUTO) 0.3 % (0-3); EOSINOPHILS % (AUTO) 3.2 % (0-5); MONOCYTES % (AUTO) 10.5 % (4-12); Mean Corpuscular Hemoglobin 30.3 pg (27.0-35.0); Mean Corpuscular Volume 85.4 fL (81-100); NEUTROPHILS % (AUTO) 55.2 % (40-74); Platelet Count 131 bil/L (150-400)
[2016-09-09 06:51] LABS: Magnesium 1.9 mg/dL (1.6-2.6); Phosphorus 3.4 mg/dL (2.5-4.9)
[2016-09-09] MEDS: Pantoprazole 40 mg ER24 Tablet PO SCH ×2 (08:02→21:30)
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
--- NOTE | 2016-09-09 11:01 | PCM.PNMED ---
Subjective Date of Service Sep 09, 2016 Subjective GASTROENTEROLOGY PROGRESS NOTE Overnight: No acute events; tolerated bowel prep well. Pain reported at 02/11. Today: Continues to endorse abdominal pain of LLQ, RLQ. States pain is better controlled this morning. Denies fever, chills. Tolerated prep well. Also reports that he had a small bowel movement associated with the colon prep that looked to be a 'blood clot' consistency and appearance. No recurrence thus far of any blood-appearing output. Exam Vital Signs Vital Sign - Last Date Time Temp Pulse Resp B/P Pulse Ox O2 Delivery O2 Flow Rate FiO2 09/09/16 04:25 36.5 61 16 123/60 96 Room Air Intake and Output 09/08/16 09/08/16 09/09/16 Cumulative From/Thru 15:00 23:00 07:00 09/06/16 10:38 - 09/09/16 06:23 Intake Total 960 ml 2695 ml 99498 ml Output Total 600 ml 900 ml 3950 ml Balance 360 ml 1795 ml 7991 ml Intake Oral 960 ml 400 ml 4200 ml IV Total 2295 ml 7741 ml Output Urine Total 600 ml 400 ml 3450 ml Stool Total 500 ml 500 ml # Bowel Movements 0 Exam General: Alert, Oriented X3, Cooperative, No Acute Distress Eyes: EOMI, Scleral Anicteric Nose: Mucous Membr Moist/[place] Mouth: Mucous Membr Moist/[place] Chest & Lungs: Clear to auscultation & percussion Cardiovascular: Regular Rate/Rhythm, No Murmurs/Rubs/Gallops Abdomen: Tender, Non-distended, Soft; tenderness noted RLQ, LLQ Musculoskeletal: Unremarkable Extremities: No cyanosis/clubbing/edma bilat Neurological: Grossly Neurologically Intact, Cranial Nerves 2-12 Intact, Normal Speech without slur Lab and Diagnostics Result Diagram: 09/09/16 0550 09/09/16 0550 X-Rays, CTs and MRIs PROCEDURE: X-RAY ACUTE ABDOMINAL SERIES ([id number]) INDICATIONS: 55 year-old male with abdominal pain. TECHNIQUE: One view chest and two views of the abdomen were acquired. COMPARISON: [facility], CR, XR ABD ACUTE SERIES 3VW, 07/09/2016, 17: 26. [facility], CR, XR ABD ACUTE SERIES 3VW, 04/03/2015, 0:29. [facility], CR, ABD ACUTE SERIES, 01/23/2012, 19:37. FINDINGS: Surgical changes and devices: Patient is status post cholecystectomy. Chest: Lungs are clear. Heart size is normal. No pleural effusions. No pneumoperitoneum. Abdomen: Bowel gas pattern is normal, with dependent fluid throughout the transverse colon, with multiple small air-fluid levels. No suspicious calcifications. Visualized solid organ contours appear normal. Bones: No suspicious bony lesions. IMPRESSION: No bowel obstruction or perforation. Dependent fluid throughout the transverse colon would suggest diarrhea. Dictated by: Clifton White M.D. on 09/06/2016 at 11:33 Approved by: Clifton White M.D. on 09/06/2016 at 11:35 PROCEDURE: CT ABDOMEN AND PELVIS WITH CONTRAST ([id number]) INDICATIONS: 55-year-old man with left lower quadrant abdominal pain and leukocytosis. TECHNIQUE: After the administration of intravenous contrast, 5 mm thick sections acquired from the diaphragm to the symphysis. 5 mm coronal and sagittal reformats were acquired. For radiation dose reduction, the following was used: automated exposure control, adjustment of mA and/or kV according to patient size. COMPARISON: [facility], CT, CT ABD PELVIS W CON, 07/10/2016, 15:29. [facility], CT, CT ABD PELVIS WO CON, 01/22/2016, 0:51. [facility], CT, CT ABD PELVIS W CON, 03/12/2015, 14:43. [facility], CT, CT ABD PELVIS W CON, 03/04/2015, 10:39. [facility], CT , CT ABD PELVIS W CON, 02/25/2015, 23:57. FINDINGS: Image quality: Excellent. ABDOMEN: Lung bases: Lung bases are clear. Heart size is normal. Patient is status post fundoplication procedure. Solid organs: Liver and spleen are normal in size. On axial image 18, 8 mm anterior right hepatic lobe hypodense lesion is unchanged since February 2015. There is focal fatty infiltration adjacent to the falciform ligament as before. Gallbladder is surgically absent. Biliary system is non dilated. Pancreas enhances normally. No adrenal nodules. Kidneys demonstrate normal size and enhancement, without hydronephrosis. Peritoneum and bowel: Bowel loops demonstrate normal wall thickness and caliber. Patient is status post segmental sigmoid resection with anastomosis, as well as appendectomy. No colonic diverticula. No free fluid or air. Nodes and vessels: No retroperitoneal or mesenteric adenopathy by size criteria. Aorta and inferior vena cava are normal in size, with mild aortic atherosclerosis. Miscellaneous: There is broad-based periumbilical ventral hernia as before. PELVIS: Genitourinary: Bladder wall thickness is normal. Prostate gland is normal in size, status post remote transurethral resection of the prostate. Miscellaneous: No inguinal hernias or adenopathy. Bones: No suspicious bony lesions. No vertebral body compression fractures. IMPRESSION: 1. No acute findings to explain left lower quadrant abdominal pain and leukocytosis, status post remote segmental sigmoid colon resection. 2. 8 mm anterior right hepatic lobe hypodense lesion is unchanged since February 2015, reassuring for benign etiology. 3. Broad-based periumbilical ventral hernia as before. Dictated by: Clifton White M.D. on 09/06/2016 at 12:29 Approved by: Clifton White M.D. on 09/06/2016 at 12:37 12-lead ECG normal sinus, no st/t chg Assessment & Plan GASTROENTEROLOGY PROGRESS NOTE Mr. Usman Gomez is a pleasant 55 year old gentleman with a complex GI history of diverticulosis s/p colon resection with anastomosis, Manpreet fundoplication, SBO, and chronic abdominal pain, that presented to [facility] 09/06/2016 with complaints of a 10 day history of progressive abdominal pain. GI service was consulted to evaluate etiology of pain. Assessments - Acute on chronic abdominal pain - Norovirus - History of diverticulosis s/p resection with anastomosis - History of ischemic colitis Plan - Colonoscopy scheduled 09/09- approx 1pm - NPO; except colon prep Will re-evaluate colon via endoscopy to find source of pain. Abd CT 09/06 did not reveal any identifiable source. Potential sources include, but not limited to, ongoing blockages secondary to stenosis, acute gastroenteritis, SBO secondary to adhesions, ischemic colitis. Colonoscopy will provide us direct visualization. Norovirus may also be contributing to symptoms of pain. White count has improved, HH remained stable. PCT trended down and normalized. Thank you for this consult, we will happily follow along with you. Total time: 30 minutes VTE Mechanical Devices: Intermittant Pneumatic CD Attending Statement Patient seen and examined agree with resident physician note stool studies reveal norovirus continue supportive care with IV fluids will cancel colonoscopy. Genna Romero DO Sep 09, 2016 10:47 Domi Hussein MD Sep 10, 2016 22:58
--- NOTE | 2016-09-09 11:03 | NUR ---
Microbiology Placed on enteric precautions r/t Noro Virus positive. patient aware.
--- NOTE | 2016-09-09 12:23 | NUR ---
Procedure Endo called for procedure and report. Endo aware r/t enteric precautions. patient aware.
--- NOTE | 2016-09-09 12:47 | NUR ---
Procedure GI doctor Dr. Pat at bed side speaking to patient. per doctor colonoscopy cancelled and new diet orders.
--- NOTE | 2016-09-09 12:53 | NUR ---
Casemanagement- IMM explained and signed by patient. Copy given to patient and orginal placed in chart. Jesenia PEREZ/ E[facility]
[2016-09-09 13:43] VITALS: BP 137/73; PULSE 73; RESP 17; O2SAT 96
--- NOTE | 2016-09-09 14:57 | NUR ---
Mentation patient alert and oriented X3. Able to make needs known. PRN diluadid given for abdominal pain 01/11 with effective results. Colonoscopy cancelled per GI doctor. Continuous enteric/contact precautions due to positive Roto virus. patient received PO medications as ordered with out difficulty swallowing. Denies nausea or vomiting this shift so far. Independent ambulation with out difficulty. Patient tolerating PO fluids and general diet with out sign and symptoms of nausea or vomiting. call light with in reach for safety. stable mood. stable vital signs. Stable oxygenation room air. Continue to monitor abdominal pain, vital signs, PO fluids, and safety.
--- NOTE | 2016-09-09 15:25 | NUR ---
Social Work Note/DC readiness: D&A: Reviewed chart. Pt.'s d/c cancelled yesterday secondary to n/v. GI consult ordered and scope anticipated. Per nrsg notes pt. remains "I" in ADL's and is alert and oriented. P: Anticipate home when medically stable. SW to continue to follow for needs. WYATT Atkinson
[2016-09-09 17:14] VITALS: BP 149/82; PULSE 76; RESP 16; O2SAT 97
--- NOTE | 2016-09-09 19:05 | NUR ---
Zofran and Benadryl patient is on scheduled Zofran and Benadryl. patient prefers to switch to PRN Zofran and Benadryl. Jake paged octaviano Lui and received orders for PRN. patient aware.
[2016-09-09 20:18] VITALS: BP 121/70; PULSE 70; RESP 18; O2SAT 97
[2016-09-09] MEDS: MeTOProlol XL 25 mg ER24 Tablet PO SCH (21:30)
[2016-09-10] MEDS: HYDROmorphone 1 mg/mL Inj IVPUSH PRN (04:48)
[2016-09-10 04:59] VITALS: BP 123/68; PULSE 70; RESP 20; O2SAT 93
--- NOTE | 2016-09-10 05:40 | NUR ---
Pain Patient states pain is 7/10 in his abdominal region. 2mg Dilaudid for pain. Patient up independent to bathroom. A&OX3. Vitals stable. Rm air. Patient states he is able to tolerated solid food in small amounts only.
[2016-09-10 06:53] LABS: BASOPHILS % (AUTO) 0.2 % (0-3); EOSINOPHILS % (AUTO) 3.6 % (0-5); MONOCYTES % (AUTO) 11.1 % (4-12); Mean Corpuscular Hemoglobin 29.5 pg (27.0-35.0); Mean Corpuscular Volume 84.9 fL (81-100); NEUTROPHILS % (AUTO) 65.1 % (40-74); Platelet Count 164 bil/L (150-400)
[2016-09-10 07:29] LABS: Magnesium 1.8 mg/dL (1.6-2.6); Phosphorus 3.5 mg/dL (2.5-4.9)
[2016-09-10] MEDS: Pantoprazole 40 mg ER24 Tablet PO SCH (08:43)
[2016-09-10] MEDS: 0.9% Sodium Chloride 1,000 ML IV SCH (08:45)
[2016-09-10] MEDS ORDERED: diphenhydrAMINE 25 mg Capsule PO PRN (10:05)
--- NOTE | 2016-09-10 12:17 | NUR ---
Discharge Orders for discharge were received. The patient was made aware of the plan and was agreeable to go. The patient was given information regarding his diagnosis and treatment, signs and symptoms to be aware of, how to use and which home medications medications to continue and follow up instructions. The patient was given instruction regarding hand washing and food preparation. The patient signified understanding of this information and his asymptomatic IV was removed intact. The patient gathered his belongings and ambulated to the main entrance where he entered an awaiting private vehicle. At the time of discharge the patient alert and oriented.
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
== END 2016-09-10 11:56 | disposition home or self-care (01) | DRG 392 ==
LOC: SED 10:30 → EDBD 10:30 → INTOOBSV 14:45 → OSC 14:45 → OBSVTOIN 09-09 11:16
PROVIDERS: ADMIT Internal Medicine; ATTEND Internal Medicine
DX: A08.11 Acute gastroenteropathy due to Norwalk agent (principal); E78.5 Hyperlipidemia, unspecified; E86.0 Dehydration; I25.10 Atherosclerotic heart disease of native coronary artery without angina pectoris; G89.29 Other chronic pain; M10.9 Gout, unspecified; F41.8 Other specified anxiety disorders; K21.9 Gastro-esophageal reflux disease without esophagitis; Z79.82 Long term (current) use of aspirin; I25.2 Old myocardial infarction

== ENCOUNTER 2016-11-17 13:33 | Day surgery (SDC) | payer MEDICARE ==
[~2016-11-17] VITALS: Ht 180.3 cm; Wt 90.0 kg
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
[~2016-11-17 13:33] MED LIST changes: +FENT1PAT7 TRANSDERM; -HYDR25CA PO; -OXYC-466 PO; -PRE10 PO
[2016-11-17] MEDS ORDERED: Propofol 10,000 mCg/mL 20 mL Inj ONE (13:34)
[2016-11-17] MEDS ORDERED: fentaNYL-PF 50 mCg/mL 2 mL Inj ONE (13:34)
[2016-11-17 13:55] VITALS: BP 150/77; PULSE 77; RESP 16; O2SAT 97
[2016-11-17] MEDS: Lactated Ringer's 1,000 ML IV ONE ×2 (14:28→15:58)
[2016-11-17] MEDS ORDERED: Lactated Ringer's 1,000 ML IV SCH (15:13)
[2016-11-17] MEDS ORDERED: Ondansetron 2 mg/mL 2 mL Inj IVPUSH PRN (15:15)
[2016-11-17 16:08] VITALS: BP 92/64; PULSE 69; RESP 15; O2SAT 100
--- NOTE | 2016-11-17 16:08 | PCM.ANEP1 ---
Post Anesthesia Phase 1 PACU Phase 1 Assessment Vital Signs Vital Signs Date Time Temp Pulse Resp B/P Pulse Ox O2 Delivery O2 Flow Rate FiO2 11/17/16 13:55 36.6 77 16 150/77 97 Room Air Anesthetic Administered: GA Level of Alertness: Awake, talking VICKERS's with Equal Strength: Yes Pain: No Nausea or Vomiting: No Oxygen Delivery: Room Air Lungs: Normal Air Movement Complications: No Follow up Care: No Favian Patterson MD November 17, 2016 16:08
--- NOTE | 2016-11-17 23:20 | ENDO ---
[address] [id number] ENDOSCOPY PROCEDURE PATIENT: QUINCY PAYNE : 1960 MR#: [id number] ADMIT: 11/17/2016 JOB ID: [id number] DATE OF PROCEDURE: 11/17/2016 PROCEDURE: Colonoscopy. INDICATIONS: A 56-year-old male with a history of ischemic colitis, history of side-to-end colorectal anastomosis for diverticular disease, chronic left-sided abdominal discomfort. Repeat colonoscopic interrogation is pursued. EQUIPMENT: Mimetas-H180AL. SEDATION: Monitored anesthesia as provided by Favian Patterson MD. COMPLICATIONS: None identified. BOWEL PREPARATION: Fair at best. PROCEDURE INFORMATION: After the risks and benefits were explained, written and verbal informed consent was obtained. The patient was brought to the endoscopy suite and placed into the left lateral decubitus position. Sedation was achieved using the above-stated medications with the addition of oxygen via nasal cannula. A digital rectal examination was accomplished. No significant pathology appreciated. The scope was introduced into the rectum and advanced to the cecum as identified by the appendiceal orifice and ileocecal valve. The scope was slowly withdrawn to carefully examine the mucosa for any defects or lesions. Multiple direct views were made through the dentate line for exclusion of pathology. The colon was decompressed. The scope was removed from the patient who tolerated the procedure well. FINDINGS: The patient had a patent side-to-end colorectal anastomosis at about 20 cm from the anal verge. We had fluoroscopy available in the room but the anastomosis was widely patent and did not appear indicated for any type of balloon dilatation. No significant polyps, mass lesions, or inflammatory features identified throughout the bowel. ENDOSCOPIC DIAGNOSES: 1. Widely patent colorectal anastomosis. 2. Hemorrhoids. RECOMMENDATIONS: 1. The patient is encouraged to initiate the bowel prep described in my office. 2. Attempt to minimize opiates. 3. Follow up in GI clinic in 2-3 months or as needed.
== END 2016-11-17 23:59 | disposition home or self-care (01) ==
LOC: END 13:33
PROVIDERS: ATTEND Internal Medicine Gastroenterology
DX: R10.9 Unspecified abdominal pain (principal); K63.89 Other specified diseases of intestine; K64.8 Other hemorrhoids; G47.00 Insomnia, unspecified; E78.2 Mixed hyperlipidemia; K58.9 Irritable bowel syndrome, unspecified; K21.9 Gastro-esophageal reflux disease without esophagitis; F31.9 Bipolar disorder, unspecified; N41.1 Chronic prostatitis; G89.4 Chronic pain syndrome; Z79.891 Long term (current) use of opiate analgesic; Z79.82 Long term (current) use of aspirin
CPT/HCPCS: 45378; J1200; J2250; J3010; J7120

== ENCOUNTER 2017-02-17 08:37 | Emergency (ER) | payer MEDICARE ==
[~2017-02-17] VITALS: Ht 180.3 cm; Wt 90.0 kg
[2017-02-17 08:38] VITALS: BP 156/83; PULSE 80; RESP 16; O2SAT 99
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
[2017-02-17 09:27] LABS: BASOPHILS % (AUTO) 0.3 % (0-3); EOSINOPHILS % (AUTO) 3.5 % (0-5); MONOCYTES % (AUTO) 10.2 % (4-12); Mean Corpuscular Hemoglobin 29.9 pg (27.0-35.0); Mean Corpuscular Volume 84.2 fL (81-100); NEUTROPHILS % (AUTO) 69.4 % (40-74); Platelet Count 214 bil/L (150-400)
--- NOTE | 2017-02-17 09:27 | DRSVH ---
PROCEDURE: X-RAY CHEST ONE VIEW, PORTABLE ([id number]) INDICATIONS: CP, COUGH TECHNIQUE: One view of the chest was acquired. COMPARISON: [facility], CR, XR CHEST 2VW, 07/11/2016, 10:56. FINDINGS: Surgical changes and devices: None. Lungs and pleura: No pleural effusions or pneumothorax. Lungs are clear. Mediastinum: Mediastinal contours appear normal. Heart size is normal. Bones and chest wall: No suspicious bony lesions. Widening of the left acromioclavicular joint may be postoperative and/or related to previous trauma and not significantly changed, but not adequately or completely included on this exam. Overlying soft tissues appear unremarkable. IMPRESSION: Stable chest. No acute cardiopulmonary process is evident. Dictated by: Julio Cesar Mendoza M.D. on 02/17/2017 at 8:25 Approved by: Juloi Cesar Mendoza M.D. on 02/17/2017 at 8:26
[2017-02-17] MEDS ORDERED: Dexamethasone 20 mg/2 mL Oral Solution PO ONE (09:40)
[2017-02-17 10:16] LABS: TROPONIN T 0.01 ug/L (0.0-0.011)
[2017-02-17] MEDS ORDERED: AZIT250T4 PO (10:49)
[2017-02-17] MEDS ORDERED: DXM4T PO (10:49)
[2017-02-17 10:57] VITALS: BP 137/78; PULSE 76; RESP 16; O2SAT 98
== END 2017-02-17 10:58 | disposition home or self-care (01) ==
LOC: SED 08:37
DX: K12.2 Cellulitis and abscess of mouth (principal); R51 Headache; R07.89 Other chest pain; I10 Essential (primary) hypertension; I25.10 Atherosclerotic heart disease of native coronary artery without angina pectoris; E78.5 Hyperlipidemia, unspecified; K21.9 Gastro-esophageal reflux disease without esophagitis; F41.9 Anxiety disorder, unspecified; F32.9 Major depressive disorder, single episode, unspecified; Z88.5 Allergy status to narcotic agent; Z88.2 Allergy status to sulfonamides; Z88.8 Allergy status to other drugs, medicaments and biological substances; Z79.82 Long term (current) use of aspirin

== ENCOUNTER 2017-03-08 19:57 | Emergency (ER) | payer MEDICARE ==
[~2017-03-08] VITALS: Ht 180.3 cm; Wt 86.4 kg
[~2017-03-08 19:57] MED LIST changes: +AZIT250T4 PO; +DXM4T PO; +METO-386 PO; -METO25TA99 PO
[2017-03-08 20:13] VITALS: BP 127/79; RESP 20; O2SAT 98
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
[2017-03-08] MEDS ORDERED: Dexamethasone 20 mg/2 mL Oral Solution PO ONE (21:40)
[2017-03-08] MEDS ORDERED: oxyCODONE-Acetamin 10-325 mg Tablet PO ONE (21:40)
[2017-03-08 22:45] VITALS: BP 132/79; PULSE 100; RESP 20; O2SAT 98
[2017-03-08 23:02] VITALS: BP 127/79; PULSE 105; RESP 20; O2SAT 98
== END 2017-03-08 23:03 | disposition home or self-care (01) ==
LOC: SED 19:57
DX: J32.9 Chronic sinusitis, unspecified (principal); H66.91 Otitis media, unspecified, right ear; I25.10 Atherosclerotic heart disease of native coronary artery without angina pectoris; E78.5 Hyperlipidemia, unspecified; F41.8 Other specified anxiety disorders; K21.9 Gastro-esophageal reflux disease without esophagitis; Z79.82 Long term (current) use of aspirin; Z87.891 Personal history of nicotine dependence; Z88.2 Allergy status to sulfonamides; Z88.5 Allergy status to narcotic agent; Z88.8 Allergy status to other drugs, medicaments and biological substances

== ENCOUNTER 2017-03-13 12:18 | Emergency (ER) | payer MEDICARE ==
[~2017-03-13] VITALS: Ht 180.3 cm; Wt 90.0 kg
[2017-03-13 12:21] VITALS: BP 150/96; PULSE 89; RESP 15; O2SAT 100
[2017-03-13] MEDS ORDERED: MUPI22OI2 NASAL (12:36)
[2017-03-13] MEDS ORDERED: CLAR250T PO (12:36)
[2017-03-13] MEDS ORDERED: PRE10 PO (12:36)
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
--- NOTE | 2017-03-13 13:19 | DRSVH ---
PROCEDURE: CT SINUSES ([id number]) INDICATIONS: 56 year-old male with sinus pressure and headaches, and 3 prior sinus surgeries. TECHNIQUE: Noncontrast 3.0 mm axial images acquired from the frontal sinuses to the mid-sella, with coronal and sagittal reformats. COMPARISON: [facility], [place], SINUS W/O CONTRAST, 03/08/2014, 18:06. FINDINGS: Image quality: Excellent. Maxillary Sinuses: Bilateral variably sized mucous retention cysts or polyps are again noted and, sujit ng with left maxillary sinus wall hyperostosis. Patient is status post bilateral maxillary sinusotomy . Ethmoid Air Cells: No bony remodeling or destruction. Sinuses are clear. Sphenoid Sinuses: No bony remodeling or destruction. Sinuses are clear. Frontal Sinuses: No bony remodeling or destruction. Sinuses are clear. Ostiomeatal Complexes: The ostiomeatal complexes are surgically absent as before. No Brian cells. Miscellaneous: Visualized intra-orbital contents are normal. No tho bullosa or paradoxical turbi anselmo curvature. No nasal septal deviation. IMPRESSION: 1. No significant interval change in bilateral maxillary sinus mucus retention cysts or polyps, as we ll as sequelae of remote left maxillary sinus chronic sinusitis. No evidence for acute sinusitis. 2. Expected changes status post remote bilateral functional endoscopic sinus surgery. Dictated by: Clifton White M.D. on 03/13/2017 at 13:11 Approved by: Clifton White M.D. on 03/13/2017 at 13:17
== END 2017-03-13 14:01 | disposition home or self-care (01) ==
LOC: SED 12:18
DX: G50.1 Atypical facial pain (principal); J34.89 Other specified disorders of nose and nasal sinuses; H61.23 Impacted cerumen, bilateral; E78.5 Hyperlipidemia, unspecified; I25.10 Atherosclerotic heart disease of native coronary artery without angina pectoris; K21.9 Gastro-esophageal reflux disease without esophagitis; E07.89 Other specified disorders of thyroid; I10 Essential (primary) hypertension; Z87.891 Personal history of nicotine dependence; Z90.49 Acquired absence of other specified parts of digestive tract; Z90.89 Acquired absence of other organs; Z79.52 Long term (current) use of systemic steroids; Z79.82 Long term (current) use of aspirin
CPT/HCPCS: 70486; 96372; 99284; J1885